=== PATIENT | male | born 1960 | race Caucasian/White ===

== ENCOUNTER 2021-03-23 09:28 | Inpatient (IN) ==
[~2021-03-23 09:28] MED LIST: Buffered Lidocaine 1% SYRIN 1 ml INTRADERM ONE; Ketamine HCL 50 mg/ml 10 ml VIAL (500 MG) ONE; Lactated Ringers 1000 ml BAG 1,000 ML IV SCH; Lidocaine 2% PF 5 ML VIAL ONE; Midazolam 2 mg/2 ml VIAL 1 mg/ml 2 ml VIAL (2 mg) ONE; Propofol 10 MG/ML 20 ML BTL ONE
[2021-03-23] MEDS ORDERED: ceFAZolin 2 GM in NS PREMIX 2 GM/100 ML BAG IVPB ONE (09:49)
[2021-03-23] MEDS ORDERED: fentaNYL 250 mcg/5 ml 50 MCG/ML 5 ml VIAL (250 MCG) ONE ×2 (11:12→11:38)
[2021-03-23] MEDS ORDERED: ROPIVACAINE 5 MG/ML 30 ML BTL (0.5%) ONE ×2 (11:14→11:44)
[2021-03-23] MEDS ORDERED: Naloxone 0.4 mg VIAL 0.4 mg/ml 1 ml VIAL IV PRN (11:31)
[2021-03-23] MEDS ORDERED: diPHENhydraMINE IV 50 MG/ML 1 ml VIAL (BENADRYL) IV PRN ×2 (11:31→12:33)
[2021-03-23] MEDS ORDERED: Prochlorperazine 5 mg/ml 2 ml VIAL (10 mg) IV PRN (11:31)
[2021-03-23] MEDS ORDERED: HYDROmorphone 1 MG/1 ML SYRINGE ONE ×2 (11:38→15:44)
[2021-03-23] MEDS ORDERED: Propofol 10 MG/ML 20 ML BTL ONE ×2 (11:38→12:13)
[2021-03-23] MEDS ORDERED: Rocuronium 50 mg VIAL 10 mg/ml 5 ml VIAL (50 mg) ONE (11:38)
[2021-03-23] MEDS ORDERED: Phenylephrine 40 mcg/mL 10mL (400mcg) SYRINGE ONE (12:27)
[2021-03-23] MEDS ORDERED: Ondansetron ODT 4 mg TAB 4 MG TAB PO PRN (12:33)
[2021-03-23] MEDS ORDERED: Morphine 2 MG/ML SYRINGE IV PRN (12:33)
[2021-03-23] MEDS ORDERED: Ondansetron 4 mg VIAL 2 MG/ML 2 ml VIAL IV PRN (12:33)
[2021-03-23] MEDS ORDERED: Magnesium Hydroxide LIQ 30 ML UDC PO PRN (12:33)
[2021-03-23] MEDS ORDERED: diPHENhydraMINE 25 mg TAB PO PRN (12:33)
[2021-03-23] MEDS ORDERED: Lactulose 30 ml UDC PO PRN (12:33)
[2021-03-23] MEDS ORDERED: Albuterol HFA INHALER 8 gm MDI INH PRN (12:41)
[2021-03-23] MEDS ORDERED: Ondansetron 4 mg VIAL 2 MG/ML 2 ml VIAL ONE (12:51)
[2021-03-23] MEDS ORDERED: Dexamethasone IV 4 MG/ML VIAL 1 ml VIAL ONE (12:51)
[2021-03-23] MEDS: HYDROmorphone 1 MG/1 ML SYRINGE IV PRN ×2 (15:45→15:58)
[2021-03-23] MEDS: Lactated Ringers 1000 ml BAG 1,000 ML IV SCH (16:40)
[2021-03-23] MEDS: ceFAZolin 1 GM ADVAN 1 GM in NS 0.9% 50 ML 50 ML IVPB SCH (17:45)
[2021-03-23] MEDS: Magnesium Hydroxide LIQ 30 ML UDC PO SCH (20:04)
[2021-03-24] MEDS: ceFAZolin 1 GM ADVAN 1 GM in NS 0.9% 50 ML 50 ML IVPB SCH ×2 (02:36→09:39)
[2021-03-24] MEDS: Lactated Ringers 1000 ml BAG 1,000 ML IV SCH (02:40)
[2021-03-24] MEDS ORDERED: NS 0.9% 500 ML BAG IV ONE (04:00)
[2021-03-24 06:18] LABS: Hematocrit 35 % (42-52); Hemoglobin 11.8 g/dL (14.0-18.0); Mean Platelet Volume 7.5 fL (7.4-10.4); Platelet Count 223 10^3/uL (150-450)
[2021-03-24 06:34] LABS: Calcium 8.2 mg/dL (8.6-10.3); Potassium 4.7 mmol/L (3.5-5.0)
[2021-03-24] MEDS: Vitamin THERAPEUTIC TAB PO SCH (08:24)
[2021-03-24] MEDS: Fluticasone NASAL SPRAY 50MCG 16 gm SPRAY BTL INTRANASAL SCH (08:24)
[2021-03-24] MEDS: Magnesium Hydroxide LIQ 30 ML UDC PO SCH ×2 (08:24→20:19)
[2021-03-24] MEDS: NS 0.9% 1000 ml BAG 1,000 ML IV SCH ×2 (09:38→20:25)
[2021-03-24 10:53] LABS: Urine Appearance Cloudy; Urine Bilirubin Negative (Negative); Urine Blood 1+ (Negative); Urine Color Amber; Urine Glucose Negative (Negative); Urine Ketones Trace (Negative); Urine Nitrite Negative (Negative); Urine Protein 1+(30 mg/dL) (Negative); Urine Specific Gravity 1.025 (1.002-1.030); Urine Urobilinogen Negative (Negative)
[2021-03-24 10:57] LABS: Urine Bacteria Absent (Absent); Urine Red Blood Cell 3+(>10/hpf) (Absent); Urine Squamous Epithelial Cell Present (Absent); Urine White Blood Cell 2+(11-20/hpf) (Absent); Urine Yeast Present (Absent)
[2021-03-25 06:00] LABS: ABS Eosinophils 0.1 10^3/ul (0-0.6); ABS Lymphocytes 1.3 10^3/ul (1.0-4.8); ABS Monocytes 1.4 10^3/ul (0-0.8); ABS Neutrophils 8.1 10^3/ul (1.5-7.7); Eosinophil % 0.7 %; Hematocrit 31 % (42-52); Lymphocyte % 12.2 %; Mean Corpuscular HGB Conc 36 g/dL (31-36); Mean Corpuscular Hemoglobin 34 pg (27-31); Mean Corpuscular Volume 97 fL (80-94); Mean Platelet Volume 7.4 fL (7.4-10.4); Platelet Count 177 10^3/uL (150-450); Red Blood Count 3.19 10^6 /uL (4.18-5.48); Red Cell Distribution Width 14 % (10-15); White Blood Count 10.9 10^3/uL (3.5-10.8)
[2021-03-25 06:28] LABS: Calcium 7.9 mg/dL (8.6-10.3)
[2021-03-25] MEDS: Magnesium Hydroxide LIQ 30 ML UDC PO SCH (08:53)
[2021-03-25] MEDS: Vitamin THERAPEUTIC TAB PO SCH (08:54)
[2021-03-25] MEDS: Fluticasone NASAL SPRAY 50MCG 16 gm SPRAY BTL INTRANASAL SCH (08:55)
[2021-03-25] MEDS ORDERED: Morphine ER 15 mg TAB ** extended release PO ONE (09:23)
[2021-03-25 11:57] VITALS: BP 134/65
[2021-03-25] MEDS ORDERED: Iodixanol (CONTRAST) 320 MG/ML 100 ML SDV IV ONE (12:18)
== END 2021-03-25 19:21 | disposition home or self-care (01) | DRG 302 ==
LOC: OR 09:28 → SSU 09:28
PROVIDERS: ADMIT Orthopaedic Surgery Adult Reconstructive Orthopaedic Surgery; ATTEND Orthopaedic Surgery Adult Reconstructive Orthopaedic Surgery